=== PATIENT | male | born 1970 | race Caucasian/White ===

== ENCOUNTER 2018-12-07 00:47 | Observation (INO) | payer BC ==
[2018-12-07] MEDS ORDERED: Sodium Chloride 0.9% 1000 ML 1,000 ML IV STA (00:58)
--- NOTE | 2018-12-07 01:25 | ERPHSYRPT ---
- History of Present Illness Time Seen by Provider: 12/07/18 01:20 Source: family () Exam Limitations: clinical condition Physician History: 48-year-old white male brought by his friend with complaint that the patient overdosed on Flexeril. According to the patient's the patient took multiple tablets of Flexeril at around 11:00. Patient arrives he is quite somnolent. Past medical history negative. Past surgical history lumbar laminectomy. Social history patient quit tobacco 4 months ago. Patient drinks 2 beers a day. No known history of substance abuse. Timing/Duration: today (11:00 this evening) Severity: moderate Modifying Factors: Improves With: other (overdose of Flexeril) Associated Symptoms: other (patient very somnolent), No nausea, No vomiting, No abdominal pain, No shortness of breath, No heartburn, No diaphoresis, No cough, No chills, No chest pain, No fever, No headaches, No loss of appetite, No rash, No syncope, No seizure, No weakness Allergies/Adverse Reactions: No Known Drug Allergies Allergy (Unverified 03/29/12 00:04) Home Medications: Cialis 03/29/12 [History] Wellbutrin 03/29/12 [History] - Review of Systems Eyes: No Symptoms Ears, Nose, & Throat: No Symptoms Respiratory: No Cough, No Dyspnea Cardiac: No Chest Pain, No Edema, No Syncope Abdominal/Gastrointestinal: No Abdominal Pain, No Nausea, No Vomiting, No Diarrhea Genitourinary Symptoms: No Dysuria Musculoskeletal: No Back Pain, No Neck Pain Skin: No Rash Neurological: Other (very somnolent) Psychological: Other (intentional overdose of Flexeril) Endocrine: No Symptoms All Other Systems: Reviewed and Negative - Past Medical History Pertinent Past Medical History: No Neurological History: No Pertinent History ENT History: No Pertinent History Cardiac History: No Pertinent History Respiratory History: No Pertinent History Endocrine Medical History: No Pertinent History Musculoskeletal History: No Pertinent History GI Medical History: No Pertinent History (or) - Past Surgical History Past Surgical History: Yes Neuro Surgical History: Neurological Surgery (previous lumbar laminectomy 4-5) Other Surgical History: DISCECTOMY 11 YRS AGO - Social History Drug Use: none Patient Lives Alone: No - Nursing Vital Signs Nursing Vital Signs: Initial Vital Signs Temperature 97.9 F 12/07/18 00:50 Pulse Rate 98 H 12/07/18 00:50 Respiratory Rate 16 12/07/18 00:50 Blood Pressure 125/92 12/07/18 00:50 O2 Sat by Pulse Oximetry 93 L 12/07/18 00:50 Pain Scale Pain Intensity 0 - Physical Exam General Appearance: other (well-developed white male somnolent) Eye Exam: PERRL/EOMI, eyes nml inspection Ears, Nose, Throat Exam: normal ENT inspection, TMs normal, pharynx normal, moist mucous membranes Neck Exam: normal inspection, non-tender, supple, full range of motion Respiratory Exam: normal breath sounds, lungs clear, No respiratory distress Cardiovascular Exam: regular rate/rhythm, normal heart sounds, normal peripheral pulses, capillary refill <2 sec Gastrointestinal/Abdomen Exam: soft, normal bowel sounds, No tenderness, No mass Back Exam: normal inspection, normal range of motion, No CVA tenderness, No vertebral tenderness Extremity Exam: normal inspection, normal range of motion, pelvis stable 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 Localizes Crystal, mmoves all extremities.), No alert (somnolent) , No oriented x 3 SpO2 Interpretation: normal (With) Ordered Tests: Active Orders 24 hr Category Date Time Status EKG-ER Only STAT Care 12/07/18 00:58 Active Crystal [Catheter-[place] Crystal] STAT Care 12/07/18 01:54 Active IV Insertion STAT Care 12/07/18 00:58 Active ACETAMINOPHEN Stat Lab 12/07/18 01:10 Completed CBC W DIFF Stat Lab 12/07/18 01:10 Completed CMP Stat Lab 12/07/18 01:10 Completed ETHYL ALCOHOL Stat Lab 12/07/18 01:10 Completed SALICYLATE Stat Lab 12/07/18 01:10 Completed UA W/RFX UR CULTURE Stat Lab 12/07/18 02:00 Completed Urine Triage Profile Stat Lab 12/07/18 02:00 Completed Medication Summary Discontinued Medications Generic Name Dose Route Start Last Admin Trade Name Freq PRN Reason Stop Dose Admin Sodium Chloride 1,000 mls @ 999 mls/hr 12/07/18 00:58 12/07/18 02:01 Sodium Chloride 0.9% 1000 Ml IV 12/07/18 01:58 999 mls/hr .Q1H1M STA Administration Sodium Chloride Confirm 12/07/18 01:56 Sodium Chloride 0.9% 1000 Ml Administered 12/07/18 01:57 Dose 1,000 mls @ ud .ROUTE .STK-MED ONE Lab/Rad Data: Laboratory Result Diagrams 12/07/18 01:10 12/07/18 01:10 Laboratory Results 12/07/18 12/07/18 12/07/18 Range/Units 02:00 02:00 01:10 WBC (4.0-10.5) K/mm3 RBC (4.1-5.6) M/mm3 Hgb (12.5-18.0) gm/dl Hct (42-50) % MCV (78-100) fl MCH (26-32) pg MCHC (32-36) g/dl RDW (11.5-14.0) % Plt Count (150-450) K/mm3 MPV (6-9.5) fl Gran % (36.0-66.0) % Eos # (Auto) (0-0.5) Absolute Lymphs (auto) (1.0-4.6) Absolute Monos (auto) (0.0-1.3) Lymphocytes % (24.0-44.0) % Monocytes % (0.0-12.0) % Eosinophils % (0.00-5.0) % Basophils % (0.0-0.4) % Absolute Granulocytes (1.4-6.9) Basophils # (0-0.4) Sodium 141 (137-145) mmol/L Potassium 3.9 (3.5-5.1) mmol/L Chloride 105 (98-107) mmol/L Carbon Dioxide 28 (22-30) mmol/L Anion Gap 13.1 (5-15) MEQ/L BUN 16 (9-20) mg/dL Creatinine 1.10 (0.66-1.25) mg/dL Estimated GFR > 60.0 ML/MIN Glucose 130 H (74-106) mg/dL Calcium 9.5 (8.4-10.2) mg/dL Total Bilirubin 0.40 (0.2-1.3) mg/dL AST 38 (17-59) U/L ALT 33 (0-50) U/L Alkaline Phosphatase 71 (38-126) U/L Serum Total Protein 7.7 (6.3-8.2) g/dL Albumin 4.6 (3.5-5.0) g/dL Urine Color STRAW (YELLOW) Urine Appearance CLEAR (CLEAR) Urine pH 7.0 (5-6) Ur Specific [place] 1.011 (1.005-1.025) Urine Protein NEGATIVE (Negative) Urine Ketones NEGATIVE (NEGATIVE) Urine Blood SMALL (0-5) Howie/ul Urine Nitrite NEGATIVE (NEGATIVE) Urine Bilirubin NEGATIVE (NEGATIVE) Urine Urobilinogen NEGATIVE (0-1) mg/dL Ur Leukocyte Esterase NEGATIVE (NEGATIVE) Urine WBC (Auto) NONE (0-5) /HPF Urine RBC (Auto) NONE (0-2) /HPF Urine Culture Reflexed NO (NO) Urine Glucose NEGATIVE (NEGATIVE) mg/dL Salicylates < 1.0 L (2-20) mg/dL Urine Opiates Level NEGATIVE (NEGATIVE) Ur Methadone NEGATIVE (NEGATIVE) Acetaminophen < 10 L (10-30) ug/ml Urine Barbiturates NEGATIVE (NEGATIVE) Ur Phencyclidine (PCP) NEGATIVE (NEGATIVE) Urine Amphetamine NEGATIVE (NEGATIVE) U Benzodiazepine Level NEGATIVE (NEGATIVE) Urine Cocaine NEGATIVE (NEGATIVE) Urine Marijuana (THC) NEGATIVE (NEGATIVE) Ethyl Alcohol < 10 (0-10) mg/dL 12/07/18 Range/Units 01:10 WBC 8.7 (4.0-10.5) K/mm3 RBC 4.73 (4.1-5.6) M/mm3 Hgb 14.9 (12.5-18.0) gm/dl Hct 42.6 (42-50) % MCV 90.1 (78-100) fl MCH 31.5 (26-32) pg MCHC 35.0 (32-36) g/dl RDW 12.7 (11.5-14.0) % Plt Count 239 (150-450) K/mm3 MPV 10.0 H (6-9.5) fl Gran % 66.0 (36.0-66.0) % Eos # (Auto) 0.10 (0-0.5) Absolute Lymphs (auto) 2.14 (1.0-4.6) Absolute Monos (auto) 0.67 (0.0-1.3) Lymphocytes % 24.6 (24.0-44.0) % Monocytes % 7.7 (0.0-12.0) % Eosinophils % 1.1 (0.00-5.0) % Basophils % 0.6 (0.0-0.4) % Absolute Granulocytes 5.75 (1.4-6.9) Basophils # 0.05 (0-0.4) Sodium (137-145) mmol/L Potassium (3.5-5.1) mmol/L Chloride (98-107) mmol/L Carbon Dioxide (22-30) mmol/L Anion Gap (5-15) MEQ/L BUN (9-20) mg/dL Creatinine (0.66-1.25) mg/dL Estimated GFR ML/MIN Glucose (74-106) mg/dL Calcium (8.4-10.2) mg/dL Total Bilirubin (0.2-1.3) mg/dL AST (17-59) U/L ALT (0-50) U/L Alkaline Phosphatase (38-126) U/L Serum Total Protein (6.3-8.2) g/dL Albumin (3.5-5.0) g/dL Urine Color (YELLOW) Urine Appearance (CLEAR) Urine pH (5-6) Ur Specific [place] (1.005-1.025) Urine Protein (Negative) Urine Ketones (NEGATIVE) Urine Blood (0-5) Howie/ul Urine Nitrite (NEGATIVE) Urine Bilirubin (NEGATIVE) Urine Urobilinogen (0-1) mg/dL Ur Leukocyte Esterase (NEGATIVE) Urine WBC (Auto) (0-5) /HPF Urine RBC (Auto) (0-2) /HPF Urine Culture Reflexed (NO) Urine Glucose (NEGATIVE) mg/dL Salicylates (2-20) mg/dL Urine Opiates Level (NEGATIVE) Ur Methadone (NEGATIVE) Acetaminophen (10-30) ug/ml Urine Barbiturates (NEGATIVE) Ur Phencyclidine (PCP) (NEGATIVE) Urine Amphetamine (NEGATIVE) U Benzodiazepine Level (NEGATIVE) Urine Cocaine (NEGATIVE) Urine Marijuana (THC) (NEGATIVE) Ethyl Alcohol (0-10) mg/dL - Progress Progress: improved Progress Note: 12/07/18 02:54 Patient very somnolent on arrival. Nurse reports he is starting to wake up some. Patient in no distress at this time vitals are stable. The nurse did state that she got a report that the patient had actually tried to gone before he took the Flexeril Patient's EKG sinus tachycardia 115 beats per minute normal axis no acute ST or T wave changes patient's CBC within normal limits chemistry within normal limits urinalysis within normal limits urine drug screen is negative acetaminophen level less than 10 salicylate 1.0 The patient apparently had been discussed by the nurse with poison control they related that the patient needed to be watched for 6-8 hours. With supportive care. I've discussed the case with Dr. Villarreal will place patient on observation ICU. Will order [facility] consult for tomorrow. - Departure Departure Disposition: Observation Clinical Impression: Intentional overdose of drug in tablet form, Suicidal ideation Condition: Fair Critical Care Time: No Referrals: MERLYN MASTERS [Primary Care Provider] -
[2018-12-07 01:32] LABS: BASOPHIL % 0.6 % (0.0-0.4); Basophil (Absolute #) 0.05 (0-0.4); Eosinophil % 1.1 % (0.00-5.0); Granulocyte Absolute (ANC) 5.75 (1.4-6.9); Hematocrit 42.6 % (42-50); Hemoglobin 14.9 gm/dl (12.5-18.0); Lymphocyte (Absolute #) 2.14 (1.0-4.6); Lymphocytes % 24.6 % (24.0-44.0); Mean Cell Volume 90.1 fl (78-100); Mean Corpuscular Hemoglobin 31.5 pg (26-32); Monocyte (Absolute #) 0.67 (0.0-1.3); Monocytes % 7.7 % (0.0-12.0); Platelet Count 239 K/mm3 (150-450); Red Blood Count 4.73 M/mm3 (4.1-5.6); Red Cell Distribution Width 12.7 % (11.5-14.0); White Blood Count 8.7 K/mm3 (4.0-10.5)
[2018-12-07] MEDS ORDERED: Sodium Chloride 0.9% 1000 ML 1,000 ML ONE (01:56)
[2018-12-07 02:12] LABS: Appearance CLEAR (CLEAR); Bilirubin NEGATIVE (NEGATIVE); Blood SMALL Ery/ul (0-5); Glucose NEGATIVE (NEGATIVE); Ketones NEGATIVE (NEGATIVE); Leukocyte Esterase NEGATIVE (NEGATIVE); Nitrite NEGATIVE (NEGATIVE); Protein,Urine Dip NEGATIVE (Negative); Specific Gravity 1.011 (1.005-1.025); Urobilinogen NEGATIVE mg/dL (0-1)
[2018-12-07 02:24] LABS: Amphetamine,Urine NEGATIVE (NEGATIVE); Barbiturate,Urine NEGATIVE (NEGATIVE); Benzodiazepine,Urine NEGATIVE (NEGATIVE); Cocaine,Urine NEGATIVE (NEGATIVE); Methadone,Urine NEGATIVE (NEGATIVE); Opiate,Urine NEGATIVE (NEGATIVE); PCP,Urine NEGATIVE (NEGATIVE); THC,Urine NEGATIVE (NEGATIVE)
[2018-12-07 02:46] LABS: ALBUMIN 4.6 g/dL (3.5-5.0); ALKALINE PHOSPHATASE 71 U/L (38-126); ANION GAP 13.1 MEQ/L (5-15); BLOOD UREA NITROGEN 16 mg/dL (9-20); CHLORIDE 105 mmol/L (98-107); Calcium 9.5 mg/dL (8.4-10.2); Carbon Dioxide 28 mmol/L (22-30); Glucose 130 mg/dL (74-106); Potassium 3.9 mmol/L (3.5-5.1); SGOT/AST 38 U/L (17-59); SGPT/ALT 33 U/L (0-50); SODIUM 141 mmol/L (137-145); Total Protein 7.7 g/dL (6.3-8.2)
[2018-12-07 02:47] LABS: ACETAMINOPHEN < 10 ug/ml (10-30); ETHYL ALCOHOL < 10 mg/dL (0-10); SALICYLATE < 1.0 mg/dL (2-20)
[2018-12-07 03:08] VITALS: O2SAT 99
[2018-12-07] MEDS: Sodium Chloride 0.9% 1000 ML 1,000 ML IV SCH ×2 (03:44→14:35)
[2018-12-07 05:27] LABS: BASOPHIL % 0.5 % (0.0-0.4); Basophil (Absolute #) 0.05 (0-0.4); Eosinophil % 1.1 % (0.00-5.0); Granulocyte Absolute (ANC) 6.16 (1.4-6.9); Granulocytes % 66.4 % (36.0-66.0); Hematocrit 39.9 % (42-50); Hemoglobin 13.5 gm/dl (12.5-18.0); Lymphocyte (Absolute #) 2.28 (1.0-4.6); Lymphocytes % 24.5 % (24.0-44.0); Mean Cell Volume 91.7 fl (78-100); Mean Corpuscular Hgb Concent. 33.8 g/dl (32-36); Mean Platelet Volume 9.8 fl (6-9.5); Monocytes % 7.5 % (0.0-12.0); Platelet Count 230 K/mm3 (150-450); Red Blood Count 4.35 M/mm3 (4.1-5.6); Red Cell Distribution Width 12.7 % (11.5-14.0); White Blood Count 9.3 K/mm3 (4.0-10.5)
[2018-12-07 05:43] LABS: ALBUMIN 3.9 g/dL (3.5-5.0); ALKALINE PHOSPHATASE 56 U/L (38-126); ANION GAP 11.4 MEQ/L (5-15); BLOOD UREA NITROGEN 15 mg/dL (9-20); CHLORIDE 107 mmol/L (98-107); Calcium 8.7 mg/dL (8.4-10.2); Carbon Dioxide 26 mmol/L (22-30); Glucose 124 mg/dL (74-106); SGOT/AST 26 U/L (17-59); SGPT/ALT 29 U/L (0-50); SODIUM 140 mmol/L (137-145); Total Protein 6.5 g/dL (6.3-8.2)
--- NOTE | 2018-12-07 10:45 | SSS ---
DISCHARGE DIAGNOSES: 1) OVERDOSE OF FLEXERIL. 2) HISTORY OF DEPRESSION. HISTORY: The patient is a 48 year-old white male patient who apparently got into an argument with his and took several Flexeril. He was brought to the emergency room for evaluation. The patient was quite somnolent on his initial evaluation but woke up after he was interviewed by the emergency room doctor. Poison Control Center recommended the patient be admitted and observed for eight hours. Due to the patient's history of depression and suicidal gesture, he will be seen by [facility] for consultation. By this morning the patient reports he feels stupid for taking medication and has no intention of doing himself any harm at this point. PAST MEDICAL/SURGICAL HISTORY: Otherwise significant for discectomy eleven years ago and laminectomy L4-L5. MEDICATIONS: The patient reports that he takes Cialis and Wellbutrin. He reports he has previously taken Prozac. He has been followed by the [facility] for his care over the past couple of years. ALLERGIES: NKDA. PHYSICAL EXAMINATION: The patient's vital signs on admission showed temperature to be 97.9F, pulse 98, respiratory rate 16 and blood pressure 125/92. O2 saturation 93%. HEENT: Normocephalic, atraumatic. Pupils equal round reactive to light. Extraocular movements intact. Oropharynx is pink and moist. NECK: Supple without lymphadenopathy, thyromegaly or JVD. CHEST: Clear to auscultation. HEART: Regular rate and rhythm. ABDOMEN: Soft with no palpable masses. EXTREMITIES: Without cyanosis, clubbing or edema. NEUROLOGIC: The patient is alert and oriented x3. No focal deficits were noted. LAB DATA AND TESTS: Showed his glucose 124. Metabolic panel was otherwise entirely normal. His CBC was likewise normal. He had negative salicylate and negative ETOH. His CBC was normal. UA showed specific gravity 1.011 and was essentially negative otherwise. Urine drug screen was negative. ASSESSMENT: A patient with suicidal gesture and previous history of depression. Will obtain [facility] consultation, with his demeanor this morning and his response of not wishing to do himself any harm they will likely set him up for outpatient follow up which is willing to do. The patient will be placed back on his Prozac at 10 mg a day pending further evaluation by psychiatrist as recommended by the [facility]. He will have follow up in my office in one week otherwise the patient will be seen through outpatient care.
[2018-12-07 12:39] VITALS: BP 129/84; PULSE 84
== END 2018-12-07 15:40 ==
LOC: ED 00:47 → ICU 03:10
PROVIDERS: ADMIT Family Medicine; ATTEND Family Medicine
DX: T48.1X2A Poisoning by skeletal muscle relaxants [neuromuscular blocking agents], intentional self-harm, initial encounter (principal); Z86.59 Personal history of other mental and behavioral disorders
CPT/HCPCS: 36000; 36415; 51702; 80053; 80307; 81001; 85025; 90791; 93005; 93268; 96360; 99285; G0378; G0481; Q3014; G0480